=== PATIENT | male | born 1965 | race Caucasian/White ===

== ENCOUNTER → 2017-01-01 | Outpatient (CLI) | payer OTHER ==
[~2017-01-01] MED LIST: AMLODIPINE-BEN1 EAC4 PO; ATENOLOL PO; GLUCOTROL PO; HUMALOG100 U/ML; LANTUS100 U/ML SUBQ; METFORMIN HCL500 M3 PO; PEN-VEE K PO; SPIRONOLAC1 TAB 25/2 PO; TOPROL XL50 MG PO; VICODIN 5/500 T1 TAB PO; ZESTORETIC 20/21 TAB PO
== END | disposition home or self-care (01) ==
LOC: CECH 13:00
DX: R01.1 Cardiac murmur, unspecified (principal); I51.7 Cardiomegaly; I35.2 Nonrheumatic aortic (valve) stenosis with insufficiency; I34.0 Nonrheumatic mitral (valve) insufficiency
CPT/HCPCS: 93306